=== PATIENT | male | born 1970 | race Caucasian/White ===

== ENCOUNTER 2016-11-07 15:10 | Inpatient (IN) | payer BC ==
[~2016-11-07] VITALS: Ht 188 cm; Wt 80.7 kg
[2016-11-07 17:13] LABS: EOSINOPHIL (%) 1.3 % (0-5); EOSINOPHIL COUNT 0.1 K/uL (0-0.3); IMMATURE GRANULOCYTE (%) 0.5 % (0.0-0.7); INSTRUMENT ABS NEUTROPHIL CT 5.1 K/uL; LYMPHOCYTE COUNT 0.8 K/uL (1.0-2.8); MCH 28.4 PG (29.0-34.0); MCHC 33.9 G/DL (30.0-36.0); MCV 83.6 FL (86-99); MEAN PLAT.VOLUME 8.7 uM^3 (9.0-12.4); MONOCYTE (%) 4.2 % (3-12); MONOCYTE COUNT 0.3 K/uL (0-0.8); NEUTROPHIL (%) 81.2 % (45-76); NEUTROPHIL COUNT 5.1 K/uL (1.8-6.4); PLATELET COUNT 227 K/uL (156-360); RBC DIS.WIDTH-CV 12.8 % (11.8-14.6); RBC DIS.WIDTH-SD 38.6 % (39-53); RED BLOOD COUNT 3.35 M/uL (4.00-5.50); WHITE BLOOD COUNT 6.3 K/uL (4.1-10.2)
[2016-11-07 17:24] LABS: CHLORIDE 108 mEq/L (99-109); SODIUM 140 mEq/L (136-147)
[2016-11-07 17:26] LABS: GLUCOSE 97 mg/dL (70-99)
[2016-11-07 17:27] LABS: ANION GAP 17 MEQ/L (2-14)
[2016-11-07 17:28] LABS: TOTAL BILIRUBIN 0.4 mg/dL (0.0-1.0)
[2016-11-07 17:29] LABS: ALKALINE PHOSPHATASE 56 IU/L (3-129)
[2016-11-07 17:30] LABS: GFR ESTIMATE (CALCULATED) 6 mL/min/
[2016-11-07 17:31] LABS: UREA NITROGEN (BUN) 86 mg/dL (9-23)
[2016-11-07 17:38] LABS: TROP-I INTERPRETATION NEGATIVE; TROPONIN-I 0.07 ng/mL (0.0-0.30)
[2016-11-07] MEDS ORDERED: LISINOPRIL-HCT1 EAC3 PO (19:28)
[2016-11-07] MEDS ORDERED: NIFEDIPINE ER60 MG PO (19:29)
[2016-11-07 22:30] VITALS: BP 157/94
[2016-11-08] VITALS (9 sets, daily range): BP systolic 134–143; BP diastolic 81–99
[2016-11-08 07:04] LABS: HEMATOCRIT 24.6 % (38.0-50.0); MCH 27.5 PG (29.0-34.0); MCHC 32.1 G/DL (30.0-36.0); MCV 85.7 FL (86-99); MEAN PLAT.VOLUME 9.4 uM^3 (9.0-12.4); PLATELET COUNT 218 K/uL (156-360); RBC DIS.WIDTH-CV 12.8 % (11.8-14.6); RBC DIS.WIDTH-SD 39.8 % (39-53); RED BLOOD COUNT 2.87 M/uL (4.00-5.50); WHITE BLOOD COUNT 4.7 K/uL (4.1-10.2)
[2016-11-08 07:28] LABS: ALKALINE PHOSPHATASE 46 IU/L (3-129); ANION GAP 14 MEQ/L (2-14); CHLORIDE 106 MEQ/L (99-109); GFR ESTIMATE (CALCULATED) 5 mL/min/; GLUCOSE 83 mg/dL (70-99); SAMPLE HEMOLYSIS CHECK 0; SAMPLE ICTERIC CHECK 0; SAMPLE LIPEMIA CHECK 0; SODIUM 139 MEQ/L (136-147); TOTAL BILIRUBIN 0.4 MG/DL (0.0-1.0); UREA NITROGEN (BUN) 81 mg/dL (9-23)
[2016-11-08 08:55] LABS: IMM.RETIC FRACTION 1.9 % (3-19); RETICULOCYTE COUNT 1.1 % (0.5-1.8)
[2016-11-08 09:21] LABS: INTACT PARATHYROID HORMONE 348 pg/mL (10-69)
[2016-11-09 04:30] VITALS: BP 133/93
[2016-11-09 06:42] LABS: HEMATOCRIT 26.2 % (38.0-50.0); IMM.RETIC FRACTION 4.7 % (3-19); MCH 28.1 PG (29.0-34.0); MCHC 32.8 G/DL (30.0-36.0); MCV 85.6 FL (86-99); MEAN PLAT.VOLUME 9.2 uM^3 (9.0-12.4); PLATELET COUNT 231 K/uL (156-360); RBC DIS.WIDTH-CV 12.6 % (11.8-14.6); RBC DIS.WIDTH-SD 39.2 % (39-53); RED BLOOD COUNT 3.06 M/uL (4.00-5.50); RETIC HGB EQUIVALENT 32.3 (28-36); RETICULOCYTE COUNT 1.3 % (0.5-1.8); WHITE BLOOD COUNT 4.7 K/uL (4.1-10.2)
[2016-11-09 07:03] LABS: ANION GAP 14 MEQ/L (2-14); CHLORIDE 102 MEQ/L (99-109); GFR ESTIMATE (CALCULATED) 5 mL/min/; GLUCOSE 91 mg/dL (70-99); IRON 127 MCG/DL (35-150); POTASSIUM 4.4 MEQ/L (3.7-5.4); SAMPLE HEMOLYSIS CHECK 0; SAMPLE ICTERIC CHECK 0; SAMPLE LIPEMIA CHECK 0; SODIUM 138 MEQ/L (136-147); UREA NITROGEN (BUN) 84 mg/dL (9-23)
[2016-11-09 08:25] LABS: FERRITIN 250 NG/ML (22-322)
[2016-11-09] MEDS ORDERED: NORCO 5/3251 TABLET PO (09:37)
[2016-11-09 10:33] LABS: HPCA INDEX 0.08
[2016-11-09 10:35] LABS: AHBS INDEX 0.18; ANTI-HEPATITIS B CORE (IGM) Nonreactive; HBC IgM INDEX 0.06; HEPATITIS B SURFACE ANTIBODY Nonreactive
[2016-11-09 12:02] VITALS: BP 155/98
[2016-11-09 16:44] VITALS: BP 167/106
[2016-11-09 20:30] VITALS: BP 131/88
[2016-11-10 00:46] VITALS: BP 110/66
[2016-11-10 04:24] VITALS: BP 109/71
[2016-11-10 06:09] LABS: HEMATOCRIT 25.8 % (38.0-50.0); MCH 28.7 PG (29.0-34.0); MCHC 33.3 G/DL (30.0-36.0); MEAN PLAT.VOLUME 9.3 uM^3 (9.0-12.4); PLATELET COUNT 228 K/uL (156-360); RBC DIS.WIDTH-SD 40.2 % (39-53)
[2016-11-10 06:22] LABS: ANION GAP 14 MEQ/L (2-14); CHLORIDE 98 MEQ/L (99-109); GFR ESTIMATE (CALCULATED) 5 mL/min/; GLUCOSE 105 mg/dL (70-99); POTASSIUM 3.7 MEQ/L (3.7-5.4); SAMPLE HEMOLYSIS CHECK 0; SAMPLE ICTERIC CHECK 0; SAMPLE LIPEMIA CHECK 0; SODIUM 132 MEQ/L (136-147); UREA NITROGEN (BUN) 85 mg/dL (9-23)
[2016-11-10 06:52] LABS: WHITE BLOOD COUNT 8.1 K/uL (4.1-10.2)
[2016-11-10 07:49] VITALS: BP 115/70
[2016-11-10] MEDS ORDERED: CALCITRIOL0.25 MCG PO (07:59)
[2016-11-10] MEDS ORDERED: LABETALOL HCL200 MG PO (07:59)
[2016-11-10] MEDS ORDERED: HYDROCODON-ACE1 EAC7 PO (07:59)
[2016-11-10] MEDS ORDERED: CALCIUM ACETAT667 MG PO (07:59)
[2016-11-10] MEDS ORDERED: CLONIDINE HCL0.1 MG PO (07:59)
== END 2016-11-10 12:40 | disposition home or self-care (01) | DRG 982 ==
LOC: EME 15:10 → EDOF 19:27 → 4EAST 19:27
PROVIDERS: Emergency Medicine; Internal Medicine; Internal Medicine Nephrology
PROC: 0WHG43Z Insertion of Infusion Device into Peritoneal Cavity, Percutaneous Endoscopic Approach (ICD-10-PCS; principal; 2016-11-09)
DX: I12.0 Hypertensive chronic kidney disease with stage 5 chronic kidney disease or end stage renal disease (principal); I16.0 Hypertensive urgency; N18.5 Chronic kidney disease, stage 5; E87.2 Acidosis; E83.39 Other disorders of phosphorus metabolism; N28.1 Cyst of kidney, acquired; I42.9 Cardiomyopathy, unspecified; F17.220 Nicotine dependence, chewing tobacco, uncomplicated; D63.1 Anemia in chronic kidney disease; I51.7 Cardiomegaly
CPT/HCPCS: 36415; 71010; 76770; 80053; 80061; 80069; 81003; 82088 90; 82150; 82306; 82384 90; 82607; 82728; 82746; 83540; 83690; 83880; 83970; 84244 90; 84443; 84466; 84484; 85025; 85027; 85045; 86705; 86706; 86803; 86900; 86901; 87086; 87340; 93005; 93306; 99281; 99285; C1750; G0103; J0690; J0881; J1170; J1644; J3010; S0020

== ENCOUNTER 2017-11-20 22:53 | Emergency (ER) | payer OTHER ==
[~2017-11-20] VITALS: Ht 185.4 cm; Wt 84.3 kg
[~2017-11-20 22:53] MED LIST: CALCITRIOL0.25 MCG PO; CALCIUM ACETAT667 MG PO; CLONIDINE HCL0.1 MG PO; HYDROCODON-ACE1 EAC7 PO; LABETALOL HCL200 MG PO; LISINOPRIL-HCT1 EAC3 PO; NIFEDIPINE ER60 MG PO; NORCO 5/3251 TABLET PO
[2017-11-20 23:50] LABS: HEMATOCRIT 22.2 % (38.0-50.0); HEMOGLOBIN 7.5 G/DL (12.5-16.6); MCH 30.9 PG (29.0-34.0); MCHC 33.8 G/DL (30.0-36.0); MCV 91.4 FL (86-99); PLATELET COUNT 158 K/uL (156-360); RBC DIS.WIDTH-CV 13.2 % (11.8-14.6); RBC DIS.WIDTH-SD 44.1 % (39-53); RED BLOOD COUNT 2.43 M/uL (4.00-5.50); WHITE BLOOD COUNT 5.5 K/uL (4.1-10.2)
[2017-11-21] LABS: CHLORIDE 101 mEq/L (99-109); POTASSIUM 5.3 mEq/L (3.7-5.4); SODIUM 137 mEq/L (136-147)
[2017-11-21 00:02] LABS: GLUCOSE 98 mg/dL (70-99)
[2017-11-21 00:06] LABS: CREATININE 18.9 mg/dL (0.6-1.3); GFR ESTIMATE (CALCULATED) 3 mL/min/ (58.99-99999)
[2017-11-21 00:07] LABS: UREA NITROGEN (BUN) 85 mg/dL (9-23)
[2017-11-21 00:08] LABS: PTT 24.5 SEC (25-37)
[2017-11-21 04:55] VITALS: BP 171/91
== END 2017-11-21 04:57 | disposition home or self-care (01) ==
LOC: EME 22:53
PROVIDERS: Emergency Medicine
DX: T80.1XXA Vascular complications following infusion, transfusion and therapeutic injection, initial encounter (principal); I12.9 Hypertensive chronic kidney disease with stage 1 through stage 4 chronic kidney disease, or unspecified chronic kidney disease; N18.9 Chronic kidney disease, unspecified; Z99.2 Dependence on renal dialysis; D64.9 Anemia, unspecified; Z88.6 Allergy status to analgesic agent
CPT/HCPCS: 74177; 80048; 85027; 85610; 85730